=== PATIENT | female | born 1985 | race African-American/Black ===

== ENCOUNTER 2016-07-27 22:49 | Emergency (ER) | payer BC ==
[~2016-07-27] VITALS: Ht 167.6 cm; Wt 73.0 kg
[2016-07-28 03:39] VITALS: BP 124/79
[2016-07-28 04:11] LABS: CLARITY URINE CLEAR (CLEAR); COLOR URINE YELLOW (YELLOW); GLUCOSE URINE NEGATIVE (NEGATIVE); KETONES URINE NEGATIVE (NEGATIVE); LEUKOCYTE ESTERASE URINE NEGATIVE (NEGATIVE); NITRITE URINE NEGATIVE (NEGATIVE); OCCULT BLOOD URINE NEGATIVE (NEGATIVE); PROTEIN URINE NEGATIVE (NEGATIVE); SPECIFIC GRAVITY URINE 1.032 (1.005-1.030)
== END 2016-07-28 04:15 | disposition home or self-care (01) ==
LOC: ER 22:49
DX: M54.5 Low back pain (principal); F17.200 Nicotine dependence, unspecified, uncomplicated
CPT/HCPCS: 81003; 99283

== ENCOUNTER 2019-02-10 18:20 | Emergency (ER) | payer BC, MEDICAID, OTHER ==
[~2019-02-10] VITALS: Ht 167.6 cm; Wt 87.0 kg
[2019-02-11 00:10] LABS: BASOPHILS % 0.5 % (0.0-2.0); CHLORIDE 103 mEq/L (98-107); EOSINOPHILS % 2.1 % (0.0-5.0); HEMATOCRIT. 40.8 % (36.0-48.0); HEMOGLOBIN. 13.6 g/dL (12.0-16.0); LYMPHOCYTES % 28.6 % (20.0-50.0); MEAN CORPUSCULAR HEMOGLOBIN 28.3 pg (28.0-32.0); MEAN CORPUSCULAR VOLUME 85.3 fL (81.0-99.0); MEAN PLATELET VOLUME 8.5 fl (7.4-10.4); MONOCYTES % 8.3 % (2.0-8.0); NEUTROPHILS % 60.5 % (40.0-76.0); PLATELET 361 x1000/uL (130-400); RED BLOOD CELL COUNT 4.79 mill/uL (4.2-5.4); RED CELL DISTRIBUTION WIDTH 15.1 % (11.6-14.6)
[2019-02-11 00:32] LABS: B-HCG QUANTITATIVE 27891 mIU/mL (<3)
[2019-02-11 01:37] VITALS: BP 130/67
== END 2019-02-11 12:00 | disposition home or self-care (01) ==
LOC: ER 18:20
DX: N93.9 Abnormal uterine and vaginal bleeding, unspecified (principal); O20.0 Threatened abortion; Z3A.09 9 weeks gestation of pregnancy
CPT/HCPCS: 36415; 76801; 76817; 80048; 81025; 84702; 85025; 99284; Z7610

== ENCOUNTER 2019-02-11 20:33 | Emergency (ER) | payer MEDICAID ==
[~2019-02-11] VITALS: Ht 167.6 cm; Wt 69.0 kg
[2019-02-11 20:40] VITALS: BP 133/82
== END 2019-02-11 23:15 | disposition left against medical advice (07) ==
LOC: ER 20:33
DX: N93.9 Abnormal uterine and vaginal bleeding, unspecified (principal); Z53.21 Procedure and treatment not carried out due to patient leaving prior to being seen by health care provider

== ENCOUNTER 2020-02-21 15:58 | Emergency (ER) | payer MEDICAID ==
[~2020-02-21] VITALS: Ht 175.3 cm; Wt 91.0 kg
[2020-02-21 17:12] LABS: BG BASE EXCESS -3.6 mmol/L (-2.0-2.0); BG CARBOXYHEMOGLOBIN 0.5 % (0.5-1.5); BG DEOXYHEMOGLOBIN 4.8 % (0.0-5.0); BG HCO3 ACT 21.1 mmol/L (22.0-26.0); BG METHEMOGLOBIN 0.3 % (0.0-1.5); BG OXYGEN SATURATION 95.2 % (92.0-98.5); BG OXYHEMOGLOBIN 94.4 % (94.0-97.0); BG PCO2 36.7 mmHg (35.0-45.0); BG PH 7.377 (7.350-7.450); BG SAMPLE SITE LEFT RADIAL; BG TOTAL HEMOGLOBIN 12.5 g/dL (12.0-18.0); BG VENT MODE ROOM AIR
[2020-02-21 20:25] LABS: EOSINOPHILS % 3.8 % (0.0-5.0); HEMATOCRIT. 38.6 % (36.0-48.0); HEMOGLOBIN. 12.4 g/dL (12.0-16.0); LYMPHOCYTES % 34.5 % (20.0-50.0); MEAN CORPUSCULAR HEMOGLOBIN 24.6 pg (28.0-32.0); MEAN CORPUSCULAR VOLUME 76.4 fL (81.0-99.0); MONOCYTES % 7.4 % (2.0-8.0); NEUTROPHILS % 53.3 % (40.0-76.0); PLATELET 331 x1000/uL (130-400); RED BLOOD CELL COUNT 5.06 mill/uL (4.2-5.4); RED CELL DISTRIBUTION WIDTH 15.8 % (11.6-14.6)
[2020-02-21 20:40] LABS: CHLORIDE 107 mEq/L (98-107)
[2020-02-21 20:44] LABS: ETHANOL BLOOD 14 mg/dL
[2020-02-22 06:04] LABS: CLARITY URINE CLEAR (CLEAR); COLOR URINE YELLOW (YELLOW); KETONES URINE NEGATIVE (NEGATIVE); LEUKOCYTE ESTERASE URINE NEGATIVE (NEGATIVE); NITRITE URINE NEGATIVE (NEGATIVE); OCCULT BLOOD URINE NEGATIVE (NEGATIVE); PROTEIN URINE NEGATIVE (NEGATIVE); SPECIFIC GRAVITY URINE 1.017 (1.005-1.030); UROBILINOGEN URINE 0.2 E.U./dL (0.2-1.0)
[2020-02-22 06:13] LABS: *AMPHETAMINES SCREEN URINE NEGATIVE (NEGATIVE); *BARBITURATES SCREEN URINE NEGATIVE (NEGATIVE); *COCAINE SCREEN URINE NEGATIVE (NEGATIVE)
[2020-02-22 06:14] LABS: *BENZODIAZEPINES SCREEN URINE NEGATIVE (NEGATIVE); METHADONE URINE SCREEN NEGATIVE (NEGATIVE); OPIATES URINE SCREEN NEGATIVE (NEGATIVE); PHENCYCLIDINE URINE SCREEN NEGATIVE (NEGATIVE)
[2020-02-22 06:17] LABS: CANNABINOID URINE SCREEN PRESUMTIVE POSITIVE (NEGATIVE)
[2020-02-23 14:35] VITALS: BP 125/79
== END 2020-02-23 14:35 | disposition home or self-care (01) ==
LOC: ER 15:58
DX: T48.1X2A Poisoning by skeletal muscle relaxants [neuromuscular blocking agents], intentional self-harm, initial encounter (principal); T65.892A Toxic effect of other specified substances, intentional self-harm, initial encounter; F32.3 Major depressive disorder, single episode, severe with psychotic features; Y92.89 Other specified places as the place of occurrence of the external cause; Z75.1 Person awaiting admission to adequate facility elsewhere
CPT/HCPCS: 36415; 36600; 71045; 80053; 80305; 80307; 80320; 80329; 81003; 81025; 82140; 82375; 82805; 83605; 85025; 86850; 86900; 93005; 99285; G0480

== ENCOUNTER 2022-08-01 10:34 | Emergency (ER) | payer MEDICAID ==
[~2022-08-01] VITALS: Ht 170.2 cm; Wt 86.0 kg
[2022-08-01 12:23] LABS: BASOPHILS % 0.8 % (0.0-2.0); HEMOGLOBIN. 12.4 g/dL (12.0-16.0); LYMPHOCYTES % 29.6 % (20.0-50.0); MEAN CORPUSCULAR HEMOGLOBIN 25.7 pg (28.0-32.0); MEAN PLATELET VOLUME 7.8 fl (7.4-10.4); MONOCYTES % 9.5 % (2.0-8.0); NEUTROPHILS % 57.1 % (40.0-76.0); PLATELET 374 x1000/uL (130-400); RED BLOOD CELL COUNT 4.81 mill/uL (4.2-5.4); RED CELL DISTRIBUTION WIDTH 15.5 % (11.6-14.6)
[2022-08-01 12:33] LABS: CHLORIDE 107 mEq/L (98-107)
[2022-08-01 14:15] LABS: CLARITY URINE CLEAR (CLEAR); COLOR URINE DARK YELLOW (YELLOW); KETONES URINE TRACE (NEGATIVE); LEUKOCYTE ESTERASE URINE NEGATIVE (NEGATIVE); NITRITE URINE NEGATIVE (NEGATIVE); OCCULT BLOOD URINE NEGATIVE (NEGATIVE); PH URINE 6.5 (4.5-8.0); PROTEIN URINE 1+ (NEGATIVE)
[2022-08-01] MEDS ORDERED: IBUP-1525 MT (14:15)
[2022-08-01] MEDS ORDERED: FAMO40TA70 MT (14:15)
[2022-08-01] MEDS ORDERED: ONDA4TAB50 MT (14:15)
[2022-08-01 14:41] VITALS: BP 135/62
== END 2022-08-01 14:43 | disposition home or self-care (01) ==
LOC: ER 11:21
DX: M54.50 Low back pain, unspecified (principal)
CPT/HCPCS: 36415; 74176; 80053; 81003; 81025; 85025; 99284

== ENCOUNTER 2024-01-25 14:46 | Emergency (ER) | payer MEDICAID ==
[~2024-01-25] VITALS: Ht 170.2 cm; Wt 88.0 kg
[~2024-01-25 14:46] MED LIST: FAMO40TA70 MT; IBUP-1525 MT; ONDA4TAB50 MT
[2024-01-25 14:48] VITALS: O2SAT 99
[2024-01-25 15:00] VITALS: BP 137/74; PULSE 95; RESP 16; TEMP 97.5; O2SAT 100
[2024-01-25] MEDS ORDERED: KETOROLAC 15MG/ML VIAL IM ONE (15:30)
[2024-01-25] MEDS ORDERED: CYCLOBENZAPRINE 10MG TABLET PO ONE (15:30)
[2024-01-25] MEDS ORDERED: NAPR-1176 MT (16:57)
[2024-01-25] MEDS ORDERED: LIDO700A15 TP (16:57)
== END 2024-01-25 16:41 | disposition home or self-care (01) ==
LOC: ER 14:46
DX: S00.511A Abrasion of lip, initial encounter (principal); M54.2 Cervicalgia; R10.9 Unspecified abdominal pain; V89.2XXA Person injured in unspecified motor-vehicle accident, traffic, initial encounter; Y93.89 Activity, other specified; Y92.89 Other specified places as the place of occurrence of the external cause; Y99.8 Other external cause status
CPT/HCPCS: 71045; 99283; J1885; Z7610

== ENCOUNTER 2025-01-11 18:14 | Emergency (ER) | payer MEDICAID ==
[~2025-01-11] VITALS: Ht 170.2 cm; Wt 97.0 kg
[~2025-01-11 18:14] MED LIST changes: +LIDO-53 TP; +NAPR-1176 MT
[2025-01-11 18:18] VITALS: O2SAT 99
[2025-01-11 18:19] VITALS: BP 153/99; PULSE 100; RESP 16; TEMP 36.8; O2SAT 100
== END 2025-01-11 20:41 | disposition left against medical advice (07) ==
LOC: ER 18:14
DX: J00 Acute nasopharyngitis [common cold] (principal)
CPT/HCPCS: 99281